=== PATIENT | male | born 1980 | race Caucasian/White ===

== ENCOUNTER 2024-06-07 22:34 | Observation (INO) | payer OTHER ==
[2024-06-07 23:25] LABS: Basophils # (A) 0.1 k/uL (0-0.2); Basophils % (A) 1 %; Eosinophils # (A) 0.2 k/uL (0-0.7); Eosinophils % (A) 2 %; HCT 47.1 % (39.0-53.0); HGB 16.2 gm/dL (13.0-17.5); Lymphocytes # (A) 3.1 k/uL (1.0-4.8); Lymphocytes % (A) 28 %; MCH 32.1 pg (25.0-35.0); MCHC 34.3 g/dL (31.0-37.0); MCV 93.7 fL (80.0-100.0); Monocytes # (A) 0.7 k/uL (0-1.0); Monocytes % (A) 6 %; Neutrophils # (A) 6.6 k/uL (1.3-7.7); Neutrophils % (A) 61 %; Platelet Count 253 k/uL (150-450); RBC 5.03 m/uL (4.30-5.90); RDW 12.6 % (11.5-15.5); WBC 10.8 k/uL (3.8-10.6)
[2024-06-07] MEDS: ASPIRIN 81 MG PO STA (23:26)
[2024-06-07 23:30] LABS: ALT 30 U/L (4-49); AST 31 U/L (17-59); African American GFR (CKD) >90 (>60 ml/min/1.73 sqM); Albumin 5.1 g/dL (3.5-5.0); Alkaline Phosphatase 74 U/L (38-126); Anion Gap 10 mmol/L; Blood Urea Nitrogen 16 mg/dL (9-20); Calcium 9.9 mg/dL (8.4-10.2); Carbon Dioxide 27 mmol/L (22-30); Chloride 100 mmol/L (98-107); Glucose 116 mg/dL (74-99); Non-African American GFR(CKD) >90 (>60 ml/min/1.73 sqM); Potassium 4.1 mmol/L (3.5-5.1); Sodium 137 mmol/L (137-145); Total Protein 7.8 g/dL (6.3-8.2)
--- NOTE | 2024-06-07 23:31 | ED ---
General Adult HPI - General Chief complaint: Chest Pain Stated complaint: abn labs Time Seen by Provider: 06/07/24 22:46 Source: patient Mode of arrival: ambulatory Limitations: no limitations - History of Present Illness Initial comments: Dictation was produced using [employer] dictation software. please excuse any grammatical, word or spelling errors. Chief Complaint: 43-year-old with chest pain and hand pain History of Present Illness: Patient is a 43-year-old male states that he has extensive family history of coronary artery disease presents to the emergency department chest pain. States it is sharp social diaphoresis and radiates to the jaw. Patient denies any pain at the bedside. Denies any cardiac history. States his is also swollen. He noticed some swelling and pain to the dorsum of his right wrist. States is painful to touch. Denies any injury or inciting event. The ROS documented in this emergency department record has been reviewed and confirmed by me. Those systems with pertinent positive or negative responses have been documented in the HPI. All other systems are other negative and/or noncontributory. - Related Data Allergies Allergy/AdvReac Type Severity Reaction Status Date / Time No Known Allergies Allergy Verified 06/07/24 22:40 Review of Systems ROS Statement: Those systems with pertinent positive or pertinent negative responses have been documented in the HPI. ROS Other: All systems not noted in ROS Statement are negative. Past Medical History Past Medical History: No Reported History History of Any Multi-Drug Resistant Organisms: None Reported Past Surgical History: Cholecystectomy, Orthopedic Surgery, Tonsillectomy Past Psychological History: No Psychological Hx Reported Smoking Status: Current every day smoker Past Alcohol Use History: None Reported Past Drug Use History: Marijuana General Exam - General Exam Comments Initial Comments: PHYSICAL EXAM: General Impression: Alert and oriented x3, not in acute distress HEENT: Normocephalic atraumatic, extra-ocular movements intact, pupils equal and reactive to light bilaterally, mucous membranes moist. Cardiovascular: Heart regular rate and rhythm Chest: Able to complete full sentences, no retractions, no tachypnea Abdomen: abdomen soft, non-tender, non-distended, no organomegaly Musculoskeletal: Pulses present and equal in all extremities, no peripheral edema Motor: no focal deficits noted Neurological: CN II-XII grossly intact, no focal motor or sensory deficits noted Skin: Intact with no visualized rashes Psych: Normal affect and mood Right hand swelling to the dorsum of the hand with palpatory tenderness. No warmth no obvious fluctuance Limitations: no limitations Course Vital Signs 06/07/24 06/07/24 22:37 23:37 Temperature 97.7 F Pulse Rate 73 76 Respiratory 18 16 Rate Blood Pressure 167/103 117/80 O2 Sat by Pulse 98 98 Oximetry Medical Decision Making - Medical Decision Making Was pt. sent in by a medical professional or institution (, PA, LICENSING WORKER, urgent care, hospital, or alf...) When possible be specific @ -No Did you speak to anyone other than the patient for history (EMS, parent, family, police, friend...)? What history was obtained from this source @ -No Did you review nursing and triage notes (agree or disagree)? Why? @ -I reviewed and agree with nursing and triage notes Were old charts reviewed (outside hosp., previous admission, EMS record, old E KG, old radiological studies, urgent care reports/EKG's, alf records)? Report findings @ -No old charts were reviewed Differential Diagnosis (chest pain, altered mental status, abdominal pain women, abdominal pain men, vaginal bleeding, musculoskeletal, weakness, fever, dyspnea, syncope, headache, dizziness, GI bleed, back pain, seizure, CVA, palpatations, mental health)? @ -Differential Chest Pain: Stable Angina, Unstable Angina, STEMI, NSTEMI Aortic Dissection, Pneumothorax, Musculoskeletal, Esophageal Spasm GERD, Cholecystitis, Pancreatitis, Zoster, this is not meant to be an all-inclusive list. EKG interpreted by me (3pts min.). @ -See above X-rays interpreted by me (1pt min.). @ -Chest x-ray shows no acute processes CT interpreted by me (1pt min.). @ -None done U/S interpreted by me (1pt. min.). @ -None done What testing was considered but not performed or refused? (CT, X-rays, U/S, labs)? Why? @ -None What meds were considered but not given or refused? Why? @ -None Was smoking cessation discussed for >3mins.? @ -No Were there social determinants of health that impacted care today? How? (Homelessness, low income, unemployed, alcoholism, drug addiction, t ransportation, low edu. Level, literacy, decrease access to med. care, alf, rehab)? @ -Tobacco use Was there de-escalation of care discussed even if they declined (Discuss DNR or withdrawal of care, Hospice)? DNR status @ -No What co-morbidities impacted this encounter? (DM, HTN, Smoking, COPD, CAD, Cancer, CVA, ARF, Chemo, Hep., AIDS, mental health diagnosis, sleep apnea, morbid obesity)? @ -Family history of heart attacks Was patient admitted / discharged? Hospital course, mention meds given and route, prescriptions, significant lab abnormalities, going to OR and other pertinent info. @ -43-year-old male with atypical chest pain typical features. Vital signs upon arrival are within acceptable limits. Laboratory evaluation obtained. Troponin is negative. Rest of labs within acceptable limits. EKG shows no acute processes. Patient does report family history and tobacco use. Will be admitted for cardiology consultation. Patient given aspirin. Did you discuss the management of the patient with other professionals (professionals i.e. , PA, LICENSING WORKER, lab, RT, psych nurse, social economist, equipment maintenance superintendent, teacher, boating safety officer, manager case management)? Give summary @ -Case discussed with hospitalist for admission Was critical care preformed (if so, how long)? @ -No Undiagnosed new problem with uncertain prognosis? @ -No Drug Therapy requiring intensive monitoring for toxicity (Heparin, Nitro, Insulin, Cardizem)? @ -No Were any procedures done? @ -No Diagnosis/symptom? Acute, or Chronic, or Acute on Chronic? Uncomplicated (without systemic symptoms) or Complicated (systemic symptoms)? @ -Chest pain Side effects of treatment? @ -No Exacerbation, Progression, or Severe Exacerbation? @ -No Poses a threat to life or bodily function? How? (Chest pain, [place], SC, pneumonia, PE, COPD, DKA, ARF, appy, cholecystitis, CVA, Diverticulitis, Homicidal, Suicidal, threat to staff... and all critical care pts) @ -yes - Lab Data Result diagrams: 06/07/24 23:00 06/07/24 23:00 Lab Results 06/07/24 06/07/24 06/07/24 Range/Units 23:00 23:00 23:00 WBC 10.8 H (3.8-10.6) k/uL RBC 5.03 (4.30-5.90) m/uL Hgb 16.2 (13.0-17.5) gm/dL Hct 47.1 (39.0-53.0) % MCV 93.7 (80.0-100.0) fL MCH 32.1 (25.0-35.0) pg MCHC 34.3 (31.0-37.0) g/dL RDW 12.6 (11.5-15.5) % Plt Count 253 (150-450) k/uL MPV 8.0 Neutrophils % 61 % Lymphocytes % 28 % Monocytes % 6 % Eosinophils % 2 % Basophils % 1 % Neutrophils # 6.6 (1.3-7.7) k/uL Lymphocytes # 3.1 (1.0-4.8) k/uL Monocytes # 0.7 (0-1.0) k/uL Eosinophils # 0.2 (0-0.7) k/uL Basophils # 0.1 (0-0.2) k/uL PT 11.0 (10.0-12.5) sec INR 1.0 (<1.2) APTT 26.5 (22.0-30.0) sec Sodium 137 (137-145) mmol/L Potassium 4.1 (3.5-5.1) mmol/L Chloride 100 (98-107) mmol/L Carbon Dioxide 27 (22-30) mmol/L Anion Gap 10 mmol/L BUN 16 (9-20) mg/dL Creatinine 0.94 (0.66-1.25) mg/dL Est GFR (CKD-EPI)AfAm >90 (>60 ml/min/1.73 sqM) Est GFR (CKD-EPI)NonAf >90 (>60 ml/min/1.73 sqM) Glucose 116 H (74-99) mg/dL Calcium 9.9 (8.4-10.2) mg/dL Magnesium 2.0 (1.6-2.3) mg/dL Total Bilirubin 1.0 (0.2-1.3) mg/dL AST 31 (17-59) U/L ALT 30 (4-49) U/L Alkaline Phosphatase 74 (38-126) U/L Troponin I (0.000-0.034) ng/mL Total Protein 7.8 (6.3-8.2) g/dL Albumin 5.1 H (3.5-5.0) g/dL 06/07/24 Range/Units 23:00 WBC (3.8-10.6) k/uL RBC (4.30-5.90) m/uL Hgb (13.0-17.5) gm/dL Hct (39.0-53.0) % MCV (80.0-100.0) fL MCH (25.0-35.0) pg MCHC (31.0-37.0) g/dL RDW (11.5-15.5) % Plt Count (150-450) k/uL MPV Neutrophils % % Lymphocytes % % Monocytes % % Eosinophils % % Basophils % % Neutrophils # (1.3-7.7) k/uL Lymphocytes # (1.0-4.8) k/uL Monocytes # (0-1.0) k/uL Eosinophils # (0-0.7) k/uL Basophils # (0-0.2) k/uL PT (10.0-12.5) sec INR (<1.2) APTT (22.0-30.0) sec Sodium (137-145) mmol/L Potassium (3.5-5.1) mmol/L Chloride (98-107) mmol/L Carbon Dioxide (22-30) mmol/L Anion Gap mmol/L BUN (9-20) mg/dL Creatinine (0.66-1.25) mg/dL Est GFR (CKD-EPI)AfAm (>60 ml/min/1.73 sqM) Est GFR (CKD-EPI)NonAf (>60 ml/min/1.73 sqM) Glucose (74-99) mg/dL Calcium (8.4-10.2) mg/dL Magnesium (1.6-2.3) mg/dL Total Bilirubin (0.2-1.3) mg/dL AST (17-59) U/L ALT (4-49) U/L Alkaline Phosphatase (38-126) U/L Troponin I <0.012 (0.000-0.034) ng/mL Total Protein (6.3-8.2) g/dL Albumin (3.5-5.0) g/dL Disposition Clinical Impression: Chest pain Disposition: ADMITTED IP TO THIS HOSP Condition: Fair Referrals: None,Stated [Primary Care Provider] - 1-2 days Decision Time: 00:51
[2024-06-07] MEDS: MORPHINE SULFATE 4 MG/ML SYRINGE IV STA (23:40)
[2024-06-07 23:49] LABS: Partial Thromboplastin Time 26.5 sec (22.0-30.0)
[2024-06-08] MEDS: HYDROmorphone 1 MG/ML 1 ML SYRINGE IVP STA (02:06)
--- NOTE | 2024-06-08 02:20 | XR ---
EXAM: XR Chest, 2 Views CLINICAL HISTORY: ITS.REASON XR Reason: Chest Pain TECHNIQUE: Frontal and lateral views of the chest. COMPARISON: No relevant prior studies available. FINDINGS: Lungs: Unremarkable. No consolidation. Pleural space: Unremarkable. No pneumothorax. Heart: Unremarkable. No cardiomegaly. Mediastinum: Unremarkable. Normal mediastinal contour. Bones/joints: Unremarkable. No acute fracture. IMPRESSION: No consolidation.
--- NOTE | 2024-06-08 02:20 | XR ---
ADDENDUM - Added by Evin Lomeli MD on 06/08/2024 2:20 AM (-05:00) FINDINGS: Bones/joints: Old fracture of the fifth metacarpal. No dislocation. Soft tissues: Dorsal soft tissue swelling. IMPRESSION: No acute findings in the right hand. Dorsal soft tissue swelling. EXAM: XR Right Hand Complete, 3 or More Views CLINICAL HISTORY: ITS.REASON XR Reason: dorsal swelling TECHNIQUE: Frontal, lateral and oblique views of the right hand. COMPARISON: No relevant prior studies available. FINDINGS: Bones/joints: Old fracture of the fifth metacarpal. No dislocation. Soft tissues: Unremarkable. No radiopaque foreign body.
[2024-06-08] MEDS: KETOROLAC 15 MG/ML 1 ML VIAL IVP STA (04:04)
[2024-06-08] MEDS ORDERED: VANCOMYCIN IV PER PHARMACY 1 EACH MISC MISCELLANE PRN (04:09)
--- NOTE | 2024-06-08 04:09 | P.HPIM ---
History of Present Illness H&P Date: 06/08/24 Chief Complaint: Chest Pain Patient is a 43-year-old male with no significant medical problems , he does not see a doctor Chief complaint of left-sided chest pain which radiates to the right side with dizziness and headaches, blurry vision, and some shortness of breath. He also endorses a sharp pain in that his jaw and some nausea. He states this chest pain has been ongoing for the last 2 to 3 months is worse with exertion, but also occurs at rest. 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 He noticed sudden swelling of his right hand , that started today as small area over the dorsum of the right hand , no fever, no chills, no trauma , he is not aware of any bug bite, he does work with his hands for underground utility , denies any IV drug use, or similar swelling in the past. he reports extreme pain that is getting worse, cant make a fist due to limitation from swelling. ED documentation reviewed. Vitals on admission temperature was 97.7, heart rate 73 bpm, respiratory rate 18, O2 saturation 98% on room air. EKG independently interpreted as normal sinus rhythm with ventricular rate of 82 bpm, QTc of 397 ms CXR was unremarkable Labs on admission show WBC is 10.8, hemoglobin 16.2, platelets 253. Sodium 137 potassium 4.1 chloride 100 bicarb 27 BUN 16 creatinine 0.94 glucose 116. Review of systems: Pertinent positives and negatives as discussed in HPI, a complete review of systems was performed and all other systems are negative. PMH: unknown due to lack of follow-up with any doctors PSH: Cholecystectomy, Tonsillectomy, hardware in ankle FMH: extensive hx CAD with multiple stents, CABG Allergies: NKDA Social history: Tobacco: .5-1pack a day Alcohol: none Recreational drugs: daily marijuana Travel: recent travel to [place] Sick contacts: none Physical examination: Vital signs reviewed General: nontoxic, no distress, appears at stated age Derm: warm, dry, intact Head: atraumatic, normocephalic, symmetric Eyes: anicteric sclera Mouth: no lip lesion, mucus membranes moist Cardiovascular: S1 S2 reg, no murmur Lungs: CTA bilateral, no rhonchi, no rales, no accessory muscle use Abdominal: soft, non-tender to palpation, nondistended Extremities: No cyanosis, clubbing, or pedal edema. Notable swelling of dorsum of right hand which is extremely tender to palpation. Patient is unable to make a fist due to pain. Neuro: Alert, Oriented to person, time and place, Gross neurological examination did not reveal any focal deficits. Cranial nerves II to XII grossly intact. Bilateral upper and lower extremity muscle strength intact and sensation intact. Psych: well appearing, appropriate affect Assessment/Plan: 43 year old male does not follow up with any doctor , coming in due to severe pain and swelling over his right hand, also reports off/on chest pain over past 2-3 months . patient is a smoker , no history of blood clots or heart attacks, no recent cardiac workup. I discussed the case with ED doc and I accepted the admission for hand swelling and chest pain Active: Right hand swelling afebrile leukocytosis WBC 10.8 elevate the right hand pain control with dilaudid 1 mg IVP q 4hr PRN and ketorolac 15 mg IVP prn q 6hr check blood culture initiate vancomycin dosing by pharmacy hand xray , showed no acute fractures hand surgery consult Atypical chest pain EKG showed NSR, no acute ST changes check Echo aspirin 81 mg po daily atorvastatin 40 mg po qhs cardiology consult chore tender check d-dimer check carotid doppler lipid panel , A1C nitro prn for chest pain otherwise blood work unremarkable Na 137, K 4.1 , BUN 16, Cr 0.9 F: No restrictions E: Replete as needed N: Heart healthy diet A: EMS DVT prophylaxis: Lovenox 40 mg subcutaneously daily The patient is admitted with an anticipated more than 2 midnight stay for evaluation of this atypical chest pain and right hand swelling. CODE STATUS: Full code Discussed with: Patient Anticipated discharge place: Home I have seen and evaluated the patient today. I Discussed the case with the resident and agree with the resident's findings I edited the assessment and plan as necessary as documented in the resident's note. Patient seen and examined 43-year-old male who presented to hospital with right hand swelling. 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 He reports that suddenly he had right hand hand swelling yesterday and presented to the ER. At this time I do not see any evidence of any skin thickening warmth or redness. I think infection is less likely and I will monitor off vancomycin. In addition I will check ESR CRP. His D-dimer is noted to be low. He does report that he did have some chest pain however denies any further chest pain today. He does report that his mother had a PE in her 40s. Does report that he uses tobacco and uses cannabis. Denies any recreational IV drug use. Continue serial neurovascular checks to right hand Past Medical History Past Medical History: No Reported History History of Any Multi-Drug Resistant Organisms: None Reported Past Surgical History: Cholecystectomy, Orthopedic Surgery, Tonsillectomy Past Psychological History: No Psychological Hx Reported Smoking Status: Current every day smoker Past Alcohol Use History: None Reported Past Drug Use History: Marijuana Medications and Allergies Allergies Allergy/AdvReac Type Severity Reaction Status Date / Time No Known Allergies Allergy Verified 06/08/24 08:29 Physical Exam Vitals: Vital Signs Temp Pulse Resp BP Pulse Ox 06/08/24 02:02 74 16 117/94 06/07/24 23:37 76 16 117/80 98 06/07/24 22:37 97.7 F 73 18 167/103 98 Intake and Output 06/07/24 06/07/24 06/08/24 14:59 22:59 06:59 Other: Weight 122.47 kg Results CBC & Chem 7: 06/07/24 23:00 06/07/24 23:00 Labs: Abnormal Lab Results - Last 24 Hours (Table) 06/07/24 06/07/24 Range/Units 23:00 23:00 WBC 10.8 H (3.8-10.6) k/uL Glucose 116 H (74-99) mg/dL Albumin 5.1 H (3.5-5.0) g/dL
[2024-06-08] MEDS: ASPIRIN 81 MG PO STA (04:27)
[2024-06-08] MEDS ORDERED: NITROGLYCERIN SL TABS 0.4 MG TAB SUBLINGUAL PRN ×2 (04:51→06:13)
[2024-06-08] MEDS: VANCOMYCIN 2,000 MG in SODIUM CHLORIDE 0.9% 500 ML 500 ML IVPB ONE (05:06)
[2024-06-08] MEDS: HYDROmorphone 1 MG/ML 1 ML SYRINGE IVP PRN ×2 (06:52→14:58)
[2024-06-08] MEDS: KETOROLAC 15 MG/ML 1 ML VIAL IVP PRN (08:20)
[2024-06-08] MEDS ORDERED: ASPIRIN 81 MG PO SCH (09:00)
[2024-06-08] MEDS: PANTOPRAZOLE 40 MG TABLET PO SCH (09:53)
[2024-06-08] MEDS: ENOXAPARIN 40 MG/0.4 ML SYRINGE SQ SCH (09:54)
[2024-06-08 10:24] LABS: VLDL Calculation 17.68 mg/dL (5.00-40.00)
--- NOTE | 2024-06-08 11:52 | US ---
EXAMINATION TYPE: US carotid duplex BILAT DATE OF EXAM: 06/08/2024 COMPARISON: NONE CLINICAL INDICATION: Male, 43 years old with history of episodes of dizziness, family h/o CAD; dizzin ess, no h/o stroke Additional History: .... TECHNIQUE: Grayscale, color Doppler and spectral Doppler evaluation of the bilateral carotid systems and vertebral arteries. Indirect Doppler criteria was utilized. FINDINGS: EXAM MEASUREMENTS: RIGHT: Peak Systolic Velocity (PSV) cm/sec ----- Right CCA: 98.4 ----- Right ICA: 123.0 ----- Right ECA: 95.5 ICA/CCA ratio: 1.2 RIGHT: End Diastole cm/sec ----- Right CCA: 23.8 ----- Right ICA: 23.8 ----- Right ECA: 13.0 LEFT: Peak Systolic Velocity (PSV) cm/sec ----- Left CCA: 124.0 ----- Left ICA: 162.0 ----- Left ECA: 75.5 ICA/CCA ratio: 1.3 LEFT: End Diastole cm/sec ----- Left CCA: 23.4 ----- Left ICA: 47.6 ----- Left ECA: 8.7 VERTEBRALS (direction of flow): Right Vertebral: Antegrade Left Vertebral: Antegrade Rhythm: Normal VARNISH MAKER NOTES: Mild homogeneous plaque with no stenosis Color Doppler imaging shows patency with blood flow throughout the carotid artery. Spectral waveforms are within normal limits. IMPRESSION: Right: No hemodynamically significant stenosis. Left: No hemodynamically significant stenosis. Criteria for Assigning % of Stenosis / Diameter reduction (Estimation based on the indirect measurements of the internal carotid artery velocities (ICA PSV). 1. Normal (no stenosis)=ICA PSV < 125 cm/s: ratio < 2.0: ICA EDV<40 cm/s. 2. Less than 50% stenosis=ICA PSV < 125 cm/s: ratio < 2.0: ICA EDV<40 cm/s. 3. 50 to 69% stenosis=ICA PSV of 125 to 230 cm/s: ration 2.0 ? 4.0: ICA EDV 40-100 cm/s. 4. Greater than 70% stenosis to near occlusion= ICA PSV > 230 cm/s: ratio > 4.0: ICA EDV > 100 cm/s. 5. Near occlusion= ICA PSV velocities may be low or undetectable: variable ratio and ICA EDV. 6. Total occlusion=unable to detect flow. [facility], , 06/08/2024 11:50 AM
--- NOTE | 2024-06-08 11:52 | US ---
EXAMINATION TYPE: US venous doppler duplex UE RT DATE OF EXAM: 06/08/2024 COMPARISON: NONE CLINICAL INDICATION: Male, 43 years old with history of hand swelling;swollen hand with no injury, no h/o dvt TECHNIQUE: Grayscale, color Doppler and spectral Doppler imaging of the upper extremity. SIDE PERFORMED: Right FINDINGS: Right Arm: Negative for DVT Grayscale, color doppler, spectral doppler imaging performed of the deep veins of the upper extremiti es. IMPRESSION: No ultrasound evidence for acute deep or superficial venous thrombosis in the right upper extremity. [facility], , 06/08/2024 11:49 AM
--- NOTE | 2024-06-08 12:38 | P.CRDCN ---
History of Present Illness Consult date: 06/08/24 Requesting physician: Johnie Peraza Reason for Consult (text): chest pain Chief complaint: Hand pain and swelling, chest pain, shortness of breath and dizziness History of present illness: This is a pleasant 43-year-old male patient who has not seen a physician in at least a decade. The current 1/2 to 1 pack/day smoker for the last 6 or 7 years and drinks 2-3 red bowls a daily. Denies alcohol use. Has a significant family history of premature CAD, father at the age of 38 due to CAD and mother had quadruple bypass at the age of 44. Presented to the hospital with complaints. He has been having episodes of chest discomfort with headache, dizziness, blurred vision and shortness of breath lasting about 30 seconds and occurring randomly with no exertional pattern noted. 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 He was prompted to come to the emergency department after he developed sudden onset right hand swelling and pain. Continues to complain of significant discomfort and swelling in the right hand. Diagnostics -EKG: Sinus rhythm -Chest x-ray: No consolidation -Right hand x-ray: Acute findings in the right hand -Laboratory studies: White blood cell count 10,800, hemoglobin 16.2, sodium 137, potassium 4.1, BUN 16, creatinine 0.94, glucose 116, troponin negative x 2 -Home cardiac medications: None -Prior stress test: None -Echocardiogram: None -Cardiac catheterization: None Review Of Systems: At the time of my exam: CONSTITUTIONAL: Denies fever or chills. HEENT: Denies blurred vision, vision changes. CARDIOVASCULAR: Denies chest pain. Denies orthopnea. Denies PND. Denies palpitations, dizziness, or syncope. RESPIRATORY: Denies shortness of breath, wheezing, or cough. Denies hemoptysis. GASTROINTESTINAL: Denies abdominal pain. Denies nausea or vomiting. Denies bleeding. HEMATOLOGIC: Denies bleeding disorders. GENITOURINARY: Denies hematuria. SKIN: Denies puritis. Denies rash. PHYSICAL EXAMINATION: This is a 43-year-old male in no apparent distress at the time of my examination. VITAL SIGNS: Reviewed. HEENT: Head is atraumatic, normocephalic. Pupils are equal, round. Sclerae anicteric. Conjunctivae are clear. Mucous membranes of the mouth are moist. Neck is supple. There is no elevated jugular venous pressure. No carotid bruit is heard. CHEST EXAMINATION: Clear to auscultation bilaterally. No wheezes rales or rhonchi. Respirations even and nonlabored. HEART EXAMINATION: Heart regular, positive S1 and S2. No S3. No S4. No clicks, rubs or murmurs. ABDOMEN: Soft, nontender. Bowel sounds are heard. No organomegaly noted. EXTREMITIES: 2+ peripheral pulses with no evidence of peripheral edema and no calf tenderness noted. Right hand swelling with minimal erythema, no warmth noted and significant tenderness to palpation NEUROLOGIC EXAMINATION: Patient is awake, alert and oriented x3. Assessment: 1. Chest pain with shortness of breath, dizziness and headache 2. Right hand swelling and pain 3. Significant family history of premature CAD 4. Nicotine dependence Plan: From cardiology's perspective patient was advised on smoking cessation and caffeine cessation. We will obtain a 2D echo with Doppler study to assess cardiac structure and function. Will obtain a stress echo to rule out underlying ischemia. Will continue to follow the patient and provide further recommendations accordingly. Thank you kindly for this consultation. Nurse practitioner note has been reviewed, I agree with documented findings and plan of care. Patient was seen and examined. Past Medical History Past Medical History: No Reported History History of Any Multi-Drug Resistant Organisms: None Reported Past Surgical History: Cholecystectomy, Orthopedic Surgery, Tonsillectomy Past Anesthesia/Blood Transfusion Reactions: No Reported Reaction Past Psychological History: No Psychological Hx Reported Smoking Status: Current every day smoker Past Alcohol Use History: None Reported Past Drug Use History: Marijuana Medications and Allergies Home Medications Medication Instructions Recorded Confirmed Type No Known Home Medications 06/08/24 06/08/24 History Allergies Allergy/AdvReac Type Severity Reaction Status Date / Time No Known Allergies Allergy Verified 06/08/24 08:29 Physical Exam Vitals: Vital Signs Temp Pulse Pulse Resp BP BP Pulse Ox 06/08/24 09:00 55 L 14 123/82 96 06/08/24 05:09 68 16 106/66 98 06/08/24 04:09 113/75 06/08/24 02:49 66 16 99/53 06/08/24 02:02 74 16 117/94 06/07/24 23:37 76 16 117/80 98 06/07/24 22:37 97.7 F 73 18 167/103 98 Intake and Output 06/07/24 06/08/24 06/08/24 22:59 06:59 14:59 Other: Weight 122.47 kg 122.47 kg Results 06/07/24 23:00 06/07/24 23:00 Cardiac Enzymes 06/07/24 06/07/24 06/08/24 Range/Units 23:00 23:00 07:30 AST 31 (17-59) U/L Troponin I <0.012 <0.012 (0.000-0.034) ng/mL Coagulation 06/07/24 Range/Units 23:00 PT 11.0 (10.0-12.5) sec APTT 26.5 (22.0-30.0) sec CBC 06/07/24 Range/Units 23:00 WBC 10.8 H (3.8-10.6) k/uL RBC 5.03 (4.30-5.90) m/uL Hgb 16.2 (13.0-17.5) gm/dL Hct 47.1 (39.0-53.0) % Plt Count 253 (150-450) k/uL Comprehensive Metabolic Panel 06/07/24 Range/Units 23:00 Sodium 137 (137-145) mmol/L Potassium 4.1 (3.5-5.1) mmol/L Chloride 100 (98-107) mmol/L Carbon Dioxide 27 (22-30) mmol/L BUN 16 (9-20) mg/dL Creatinine 0.94 (0.66-1.25) mg/dL Glucose 116 H (74-99) mg/dL Calcium 9.9 (8.4-10.2) mg/dL AST 31 (17-59) U/L ALT 30 (4-49) U/L Alkaline Phosphatase 74 (38-126) U/L Total Protein 7.8 (6.3-8.2) g/dL Albumin 5.1 H (3.5-5.0) g/dL Current Medications Generic Name Dose Route Start Last Admin Trade Name Freq PRN Reason Stop Dose Admin Aspirin 81 mg 06/09/24 09:00 Aspirin 81 Mg PO DAILY [facility] Atorvastatin Calcium 40 mg 06/08/24 21:00 Atorvastatin 40 Mg Tab PO [facility] Enoxaparin Sodium 40 mg 06/08/24 09:00 Enoxaparin 40 Mg/0.4 Ml Syringe SQ DAILY [facility] Hydromorphone HCl 1 mg 06/08/24 04:05 06/08/24 06:52 Hydromorphone 1 Mg/Ml 1 Ml Syringe IVP 1 mg Q4HR PRN Administration Pain Vancomycin HCl 2,000 mg/ 500 mls @ 167 mls/hr 06/08/24 13:00 Sodium Chloride IVPB Q8H [id number] Ketorolac Tromethamine 15 mg 06/08/24 04:05 06/08/24 08:20 Ketorolac 15 Mg/Ml 1 Ml Vial IVP 06/13/24 04:05 15 mg Q6HR PRN Administration Pain Nitroglycerin 0.4 mg 06/08/24 06:13 Nitroglycerin Sl Tabs 0.4 Mg Tab SUBLINGUAL Q5M PRN Chest Pain Pantoprazole Sodium 40 mg 06/08/24 07:30 Pantoprazole 40 Mg Tablet PO [facility] Intake and Output 06/07/24 06/08/24 06/08/24 22:59 06:59 14:59 Other: Weight 122.47 kg 122.47 kg Patient Weight 06/09/24 06:59 Weight 122.47 kg 06/07/24 23:00 06/07/24 23:00
[2024-06-08] MEDS: NICOTINE 21MG/24HR PATCH TRANSDERM SCH (12:48)
[2024-06-08] MEDS ORDERED: VANCOMYCIN 2,000 MG in SODIUM CHLORIDE 0.9% 500 ML 500 ML IVPB SCH ×2 (13:00→17:00)
[2024-06-08] MEDS: ATORVASTATIN 40 MG TAB PO SCH (19:47)
[2024-06-09 05:43] LABS: African American GFR (CKD) >90 (>60 ml/min/1.73 sqM); Non-African American GFR(CKD) >90 (>60 ml/min/1.73 sqM)
[2024-06-09] MEDS ORDERED: ASPIRIN 325 MG TAB PO SCH (09:00)
--- NOTE | 2024-06-09 09:35 | P.CNOR ---
History of Present Illness - [facility] Consult date: 06/09/24 Consult reason: joint pain (Right hand pain, swelling.) History of present illness: Loyda presented to the emergency department yesterday with chest pain which was radiating to his jaw. He also had complaint of right hand swelling and pain since Sunday. He denies any trauma or injury to the hand. He denies a history of gout or arthritic conditions. He denies recent fever or chills. He denies recent illness. We are consulted for orthopedic evaluation of his right hand swelling. Past Medical History Past Medical History: No Reported History History of Any Multi-Drug Resistant Organisms: None Reported Past Surgical History: Cholecystectomy, Orthopedic Surgery, Tonsillectomy Past Anesthesia/Blood Transfusion Reactions: No Reported Reaction Past Psychological History: No Psychological Hx Reported Smoking Status: Current every day smoker Past Alcohol Use History: None Reported Past Drug Use History: Marijuana Medications and Allergies Home Medications Medication Instructions Recorded Confirmed Type No Known Home Medications 06/08/24 06/08/24 History Allergies Allergy/AdvReac Type Severity Reaction Status Date / Time No Known Allergies Allergy Verified 06/08/24 08:29 Physical Examination This is a 43-year-old male in no acute distress. He is alert and oriented x 3. Exam of the right upper extremity reveals a generalized edema to the dorsum of the right hand. There is very mild erythema to the hand. He has full extension and full flexion of the fingers with some discomfort on flexion. There is no obvious fluid collection or abscess on exam. There is tenderness with palpation about the dorsum of the hand in the region of the metacarpals. He has fairly good wrist motion with no obvious wrist effusion. Neurovascular status to the upper extremity is intact. Results X-rays of the right hand reveal no obvious fracture or dislocation. No bony abnormalities noted. There is evidence of a prior fifth metacarpal neck frac ture which is well-healed in satisfactory position. - Labs Labs: Abnormal Lab Results - Last 24 Hours (Table) 06/08/24 Range/Units 05:09 HDL Cholesterol 39.30 L (40.00-60.00) mg/dL H & H 06/07/24 Range/Units 23:00 Hgb 16.2 (13.0-17.5) gm/dL Hct 47.1 (39.0-53.0) % Coagulation 06/07/24 Range/Units 23:00 INR 1.0 (<1.2) Result Diagrams: 06/09/24 09:43 06/09/24 04:50 Assessment and Plan (1) Swelling of right hand Status: Acute Code(s): M79.89 - OTHER SPECIFIED SOFT TISSUE DISORDERS SNOMED Code(s): 195752233 (2) Chest pain Status: Acute Code(s): R07.9 - CHEST PAIN, UNSPECIFIED SNOMED Code(s): 81069283 Plan: The clinical and x-ray findings are discussed with the patient. An MRI of the right hand has been ordered. We will continue to follow and await MRI results. I do not see a focal fluid collection or abscess that would require any immediate surgical intervention. Continue to ice and elevate the extremity as tolerated. Patient Left AMA before I could examine him and also was unable to have MRI performed. Should patient return to the hospital please reach out to our team abby carr further evaluation be necessary. Dante Severino MD
[2024-06-09 09:59] LABS: Basophils % (A) 1 %; Eosinophils # (A) 0.2 k/uL (0-0.7); Eosinophils % (A) 3 %; HCT 46.6 % (39.0-53.0); HGB 15.7 gm/dL (13.0-17.5); Lymphocytes # (A) 1.8 k/uL (1.0-4.8); Lymphocytes % (A) 27 %; MCH 31.5 pg (25.0-35.0); MCHC 33.7 g/dL (31.0-37.0); MCV 93.5 fL (80.0-100.0); Mean Platelet Volume 7.9; Monocytes # (A) 0.5 k/uL (0-1.0); Monocytes % (A) 7 %; Neutrophils % (A) 61 %; Platelet Count 249 k/uL (150-450); RBC 4.98 m/uL (4.30-5.90); RDW 12.6 % (11.5-15.5); WBC 6.6 k/uL (3.8-10.6)
--- NOTE | 2024-06-09 10:05 | CA ---
Transthoracic Echo Report Name: Loyda Cunha Age: 43 Gender: M : 1980 Exam Date: 06/09/2024 08:11 Exam Location: [place] Echo Ht (in): 73 Wt (lb): 270 Ordering Physician: Johnie Peraza MD Attending/Referring Phys: [id number], Stu Rn On Site Susan Venegas, REBECCA Procedure CPT: Indications: atypical chest pain Cardiac Hx: Technical Quality: Fair Contrast 1: Total Dose (mL): Contrast 2: Total Dose (mL): MEASUREMENTS (Male / Female) Normal Values 2D ECHO LV Diastolic Diameter PLAX 4.2 cm 4.2 - 5.9 / 3.9 - 5.3 cm LV Systolic Diameter PLAX 2.6 cm IVS Diastolic Thickness 1.6 cm 0.6 - 1.0 / 0.6 - 0.9 cm LVPW Diastolic Thickness 1.4 cm 0.6 - 1.0 / 0.6 - 0.9 cm LV Relative Wall Thickness 0.7 RV Internal Dim ED PLAX 2.5 cm LA Systolic Diameter LX 5.5 cm 3.0 - 4.0 / 2.7 - 3.8 cm LV Diastolic Volume MOD BP 75.9 cm??? 67 - 155 / 56 - 104 cm??? LV Systolic Volume MOD BP 37.3 cm??? 22 - 58 / 19 - 49 cm??? LV Ejection Fraction MOD BP 50.8 % >= 55 % LV Cardiac Index MOD BP 830.0 cm???/min???m??? LV Diastolic Volume MOD 4C 88.2 cm??? LV Systolic Volume MOD 4C 32.8 cm??? LV Ejection Fraction MOD 4C 62.8 % LV Cardiac Index MOD 4C 1193.0 cm???/min???m??? LV Diastolic Length 4C 7.2 cm LV Systolic Length 4C 6.4 cm LV Diastolic Volume MOD 2C 82.9 cm??? LV Systolic Volume MOD 2C 38.1 cm??? LV Ejection Fraction MOD 2C 54.0 % LV Cardiac Index MOD 2C 964.7 cm???/min???m??? LV Diastolic Length 2C 8.1 cm LV Systolic Length 2C 7.2 cm LA Volume 69.3 cm??? 18 - 58 / 22 - 52 cm??? LA Volume Index 27.1 cm???/m??? 16 - 28 cm???/m??? M-MODE Aortic Root Diameter MM 3.8 cm LA Systolic Diameter MM 3.2 cm LA Ao Ratio MM 0.9 AV Cusp Separation MM 1.6 cm DOPPLER MV Area PHT 2.4 cm??? Mitral E Point Velocity 67.3 cm/s Mitral A Point Velocity 79.4 cm/s Mitral E to A Ratio 0.8 MV Deceleration Time 321.0 ms FINDINGS Left Ventricle Left ventricular ejection fraction is estimated at 55-60%. Moderately increased septal wall thickness. Normal left ventricular systolic function with no obvious regional wall motion abnormalities. Left ventricle not well visualized. Right Ventricle Normal right ventricular size and function. Right ventricular systolic pressure within normal limits. Right Atrium Mild right atrial dilatation. Left Atrium Moderately increased left atrial volume. Mildly increased left atrial area. Mitral Valve Structurally normal mitral valve. Mild mitral regurgitation. No mitral stenosis. Aortic Valve Trileaflet aortic valve. No aortic valve stenosis or regurgitation. Tricuspid Valve Structurally normal tricuspid valve. Trace tricuspid regurgitation. No tricuspid stenosis. Pulmonic Valve Structurally normal pulmonic valve. No pulmonic stenosis. Trace pulmonic regurgitation. Pericardium No pericardial or pleural effusion. Aorta Mild aortic dilatation at the level of the sinuses of valsalva (root). CONCLUSIONS LVEF 55% Moderate septal hypertrophy with no LVOT obstruction No obvious regional wall motion abnormality Normal RV size and systolic function Mild left atrial dilatation Mild MR, mild TR, Aortic root is at upper limit of normal measuring 3.8 cm Previewed by: Dr Alli Ly (Electronically Signed) Final Date: 09 June 2024 10:04
--- NOTE | 2024-06-09 11:19 | CA ---
Stress Echo Report Loyda Cunha Age: 43 Gender: M : 1980 Exam Date: 06/09/2024 10:10 Exam Location: [place] [facility] Ht (in): 73 Wt (lb): 270 Ordering Physician: Shilpi Blandon Referring Physician: [id number] Singh Flour Distributor: Deepa Mc RDCS Technologist Procedure CPT: Indication: Chest Pain ICD-9 Codes: Rhythm: Patient History: Cardiac Medications: SEE CHART Medications in past 24 hours: Contrast: Definity Stress Results Protocol: Arias Total dose(mL): 2 Exercise Duration (min:sec): 10:[address] Depression (mm): Angina Score: Franco Score: METS: 11.5 Resting HR: 86 Resting BP: 119 / 67 Peak HR: 163 Peak BP: 174 / 98 Max Predicted HR: 178 92 % Max Predicted HR Target HR: 151 Double Product: 13892 Stress Summary: BP Response: Reason for Termination: Reached target heart rate or work-load Cardiac Symptoms: NO SYMPTOMS ECG Analysis Resting ECG: Normal sinus rhythm, heart rate 64 bpm Stress ECG: No significant ST-T wave changes that are diagnostic for ischemia Arrhythmia: No significant arrhythmias. Occasional PVC Echo Analysis Resting Echo: Normal global and segmental systolic function at rest. No resting regional wall motion abnormality Peak Echo Analysis: normal augmentation of global and segmental systolic function. No stress-induced regional wall motion abnormality MEASUREMENTS (Male/Female) Normal Values CONCLUSIONS Good exercise tolerance achieving 11.5 METS Normal hemodynamic response Nonischemic ECG and echocardiographic response Overall normal treadmill echo stress test Dr Alli Ly (Electronically Signed) Final Date: 09 June 2024 11:18
--- NOTE | 2024-06-09 11:28 | P.PN ---
Subjective Progress Note Date: 06/09/24 Requesting physician: Johnie Peraza Reason for Consult (text): chest pain Chief complaint: Hand pain and swelling, chest pain, shortness of breath and dizziness History of present illness: This is a pleasant 43-year-old male patient who has not seen a physician in at least a decade. The current 1/2 to 1 pack/day smoker for the last 6 or 7 years and drinks 2-3 red bulls a daily. Denies alcohol use. Has a significant family history of premature CAD, father at the age of 38 due to CAD and mother had quadruple bypass at the age of 44. Presented to the hospital with complaints. He has been having episodes of chest discomfort with headache, dizziness, blurred vision and shortness of breath lasting about 30 seconds and occurring randomly with no exertional pattern noted. 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 He was prompted to come to the emergency department after he developed sudden onset right hand swelling and pain. Continues to complain of significant discomfort and swelling in the right hand. Diagnostics -EKG: Sinus rhythm -Chest x-ray: No consolidation -Right hand x-ray: Acute findings in the right hand -Laboratory studies: White blood cell count 10,800, hemoglobin 16.2, sodium 137, potassium 4.1, BUN 16, creatinine 0.94, glucose 116, troponin negative x 2 -Home cardiac medications: None -Prior stress test: None -Echocardiogram: None -Cardiac catheterization: None 06/09/2024 Patient seen and examined. He is scheduled for stress echocardiogram and echocardiogram today. Patient denies having any chest pain. Blood pressure 131/49, heart rate 61, pulse ox 97% on room air. Patient is concerned about swelling in his hand and Venous duplex was negative for DVT. Patient has been seen by orthopedics and scheduled for MRI today. Stress echocardiogram is normal Echocardiogram reveals EF of 55%, moderate septal hypertrophy with no LVOT obstruction. Mild MR, mild TR, mild left atrial dilatation. Aortic root is measuring 3.8 cm. PHYSICAL EXAMINATION: This is a 43-year-old male in no apparent distress at the time of my examination. VITAL SIGNS: Reviewed. HEENT: Head is atraumatic, normocephalic. Pupils are equal, round. Sclerae anicteric. Conjunctivae are clear. Mucous membranes of the mouth are moist. Neck is supple. There is no elevated jugular venous pressure. No carotid bruit is heard. CHEST EXAMINATION: Clear to auscultation bilaterally. No wheezes rales or rhonchi. Respirations even and nonlabored. HEART EXAMINATION: Heart regular, positive S1 and S2. No S3. No S4. No clicks, rubs or murmurs. ABDOMEN: Soft, nontender. Bowel sounds are heard. No organomegaly noted. EXTREMITIES: 2+ peripheral pulses with no evidence of peripheral edema and no calf tenderness noted. Right hand swelling with minimal erythema, no warmth noted and significant tenderness to palpation NEUROLOGIC EXAMINATION: Patient is awake, alert and oriented x3. Assessment: 1. Chest pain with shortness of breath, dizziness and headache 2. Right hand swelling and pain 3. Significant family history of premature CAD 4. Nicotine dependence Plan: From cardiology's perspective patient was advised on smoking cessation and caffeine cessation. Patient will be provided with the [employer] quit line information at discharge Cardiology will sign off this case and follow on an as-needed basis. Please reconsult for any new concerns. Patient may follow-up in the office in one to 2 weeks. Nurse practitioner note has been reviewed, I agree with documented findings and plan of care. Patient was seen and examined. Objective - Vital Signs Vital signs: Vital Signs Temp 97.5 F L 06/09/24 02:22 Pulse 63 06/09/24 02:22 Resp 18 06/09/24 02:22 BP 139/91 06/09/24 02:22 Pulse Ox 96 06/09/24 02:22 FiO2 Intake & Output 06/08/24 06/09/24 06/09/24 18:59 06:59 18:59 Intake Total 590 Balance 590 Weight 122.47 kg Intake: Oral 590 Other: # Voids 1 3 - Labs CBC & Chem 7: 06/09/24 09:43 06/09/24 04:50 Labs: Abnormal Lab Results - Last 24 Hours (Table) 06/08/24 Range/Units 05:09 HDL Cholesterol 39.30 L (40.00-60.00) mg/dL
[2024-06-09] MEDS: ASPIRIN 81 MG PO SCH (14:16)
[2024-06-09 14:31] VITALS: BP 104/64; PULSE 74; RESP 17; TEMP 97.9
[2024-06-09 16:03] LABS: Erythrocyte Sedimentation Rate 5 mm/Hr (0-15)
--- NOTE | 2024-06-09 16:40 | P.DS ---
Providers Date of admission: 06/08/24 06:16 Expected date of discharge: 06/09/24 Attending physician: Johnie Peraza MD Consults: 06/08/24 04:43 Consult Physician Urgent Consulting Provider: Dante Severino Consult Reason/Comments: right hand swelling Do you want consulting provider notified?: Yes, Notify in am 06/08/24 04:48 Consult Physician Routine Consulting Provider: Justin Galeas Consult Reason/Comments: Chest pain Do you want consulting provider notified?: Yes, Notify in am Primary care physician: Stated None Hospital Course: 43-year-old male with no significant medical problems presented with left-sided chest pain which radiates to the right side with dizziness and headaches, blurry vision, and some shortness of breath. He also endorses a sharp pain in that his jaw and some nausea. He states this chest pain has been ongoing for the last 2 to 3 months is worse with exertion, but also occurs at rest. 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 Also he noticed sudden swelling of his right hand , that started today as small area over the dorsum of the right hand , no fever, no chills, no trauma , he is not aware of any bug bite, he does work with his hands for underground utility , denies any IV drug use, or similar swelling in the past. He reports extreme pain that is getting worse, cant make a fist due to limitation from swelling. He was admitted, serial trops were negative. He underwent echo stress testing which showed no ischemic response. Echo showed normal ef. Was seen by ortho regarding the right hand swelling. Nothing to drain. MRI right hand ordered but patient got upset that he had to have an x ray of the eye because he has hx of questionable sharpnel in the eye. Subsequently he signed off ama. Time for discharge 35 min Patient Condition at Discharge: Good Plan - Discharge Summary New Discharge Prescriptions: No Action No Known Home Medications Discharge Medication List No Known Home Medications 06/08/24 [History] Follow up Appointment(s)/Referral(s): None,Stated [Primary Care Provider] - 1-2 days Discharge Disposition: LEFT AGAINST MEDICAL ADVICE
[2024-06-09 21:38] LABS: Chol/HDL Ratio 4.05 Ratio; LDL Cholesterol,Calculated 100.4 mg/dL (0.0-131.0)
== END 2024-06-09 16:22 | disposition left against medical advice (07) ==
LOC: EC 22:34 → 6NMEDSUR 06-08 06:16
PROVIDERS: ADMIT Internal Medicine; ATTEND Internal Medicine
DX: R07.89 Other chest pain (principal); I08.1 Rheumatic disorders of both mitral and tricuspid valves; M79.641 Pain in right hand; R22.31 Localized swelling, mass and lump, right upper limb; R61 Generalized hyperhidrosis; R68.84 Jaw pain; R42 Dizziness and giddiness; R51.9 Headache, unspecified; H53.8 Other visual disturbances; R11.0 Nausea; F12.90 Cannabis use, unspecified, uncomplicated; F17.210 Nicotine dependence, cigarettes, uncomplicated; Z82.49 Family history of ischemic heart disease and other diseases of the circulatory system; Z53.29 Procedure and treatment not carried out because of patient's decision for other reasons
CPT/HCPCS: 96376 ×3; 96372; 96365; 96366; 96375 ×2; 99285; 36415 ×2; 93005; 93306; 93351; 85379; 80061 ×2; 80053; 85652 ×2; 82565; 83735; 84550; 84484 ×2; 85025 ×2; 85610; 85730; 86140 ×2; 87040; 83036; 73130; 71046; 93880; 93971; G0378 ×2; S4990 ×2; J3370; J2270; J1650; Q9957; J1171 ×2; J1885 ×2